=== PATIENT | male | born 1995 | race Caucasian/White ===

== ENCOUNTER 2017-07-05 11:26 | Emergency (ER) | payer SELFPAY ==
[~2017-07-05] VITALS: Ht 190.5 cm; Wt 84.0 kg
[~2017-07-05 11:26] MED LIST: AUGM875T PO; PRED20 PO; ZOFR4TAB PO
[2017-07-05] MEDS ORDERED: IOHEXOL 350 MG/ML 10 ML VIAL (for RAD DIAG) IVCONTRAST ONE (11:27)
[2017-07-05 11:28] VITALS: BP 136/82; PULSE 77; RESP 12; TEMP 98.5; O2SAT 99
--- NOTE | 2017-07-05 11:42 | PD ---
HPI Chief Complaint: Pain: Acute or Chronic Time Seen by Provider: 11:36 Travel History International Travel<30 days: No Contact w/Intl Traveler<30days: No Traveled to known affect area: No History of Present Illness HPI patient states 2 days of left jaw swelling and pain, 03/13, throbbing in nature, denies fever/n/v/d/cp/abdpain/backpain... PFSH Past Medical History Medical other: Yes (TMJ) Social History Alcohol Use: Yes (once a week) Tobacco Use: Yes (1/2ppd) Substance Use: No Allergies-Medications (Allergen,Severity, Reaction): Coded Allergies: No Known Allergies (Unverified Adverse Reaction, Unknown, 07/05/17) Reported Meds & Prescriptions Reported Meds & Active Scripts Active Zofran (Ondansetron HCl) 4 Mg Tab 4 Mg PO Q6HR PRN Review of Systems Except as stated in HPI: all other systems reviewed are Neg HENT: Positive: Other (jaw pain/swelling) Physical Exam Narrative GENERAL: SKIN: Warm and dry. HEAD: Atraumatic. Normocephalic. EYES: Pupils equal and round. No scleral icterus. No injection or drainage. ENT: No nasal bleeding or discharge. Mucous membranes pink and moist. swelling to left parotid area/cheek region that is ttp, it is under estrada and no cellulitic changes are noted NECK: Trachea midline. No JVD. CARDIOVASCULAR: Regular rate and rhythm. RESPIRATORY: No accessory muscle use. Clear to auscultation. Breath sounds equal bilaterally. GASTROINTESTINAL: Abdomen soft, non-tender, nondistended. MUSCULOSKELETAL: Extremities without clubbing, cyanosis, or edema. No obvious deformities. NEUROLOGICAL: Awake and alert. No obvious cranial nerve deficits. Motor grossly within normal limits. Five out of 5 muscle strength in the arms and legs. Normal speech. PSYCHIATRIC: Appropriate mood and affect; insight and judgment normal. Data Data Last Documented VS Vital Signs Date Time Temp Pulse Resp B/P (MAP) Pulse Ox O2 Delivery O2 Flow Rate FiO2 07/05/17 11:35 18 07/05/17 11:28 98.5 77 136/82 (100) 99 Orders Orders Group A Rapid Strep Screen (07/05/17 11:42) Iv Access Insert/Monitor (07/05/17 11:42) Ct Facial Bones W Iv Contrast (07/05/17 ) Strep Culture (Group A) (07/05/17 11:56) Iohexol 350 Inj (Omnipaque 350 Inj) (07/05/17 11:27) MDM Medical Decision Making Medical Screen Exam Complete: Yes Emergency Medical Condition: Yes Medical Record Reviewed: Yes Differential Diagnosis tonsillitis v dental abscess with facial extension v parotid gland or submandibular adenitis Diagnosis Primary Impression: Parotid gland enlargement Referrals: Leo Goldman MD for further evaluation of your enlarged parotid gland, no stone noted on cat scan. Additional Instructions: use lemon drops to see if it helps to improved/decrease swelling as well. make an appointment to follow up with Ear/Nose&Throat specialist Scripts Tramadol (Ultram) 50 Mg Tab 50 MG PO Q4H Y for PAIN, #15 TAB 0 Refills Prov: Rd Vega MD 07/05/17 Methylprednisolone Dosepak (Medrol Dosepak) 4 Mg Dspk 4 MG PO DIRECTED, #1 DSPK 0 Refills Per Pharmacist direction Prov: Rd Vega MD 07/05/17 Disposition: 01 DISCHARGE HOME Condition: Stable Rd Vega MD Jul 05, 2017 11:42
--- NOTE | 2017-07-05 12:43 | RADRPT ---
EXAM DATE/TIME: 07/05/2017 12:20 [facility] COMPARISON: No previous studies available for comparison. INDICATIONS : Left jaw pain with swelling. IV CONTRAST: 80 cc Omnipaque 350 (iohexol) IV RADIATION DOSE: 37.85 CTDIvol (mGy) MEDICAL HISTORY : None SURGICAL HISTORY : None. ENCOUNTER: Initial ACUITY: 3 days PAIN SCALE: 5/10 LOCATION: Left mandible TECHNIQUE: Volumetric scanning of the facial bones was performed. Using automated exposure control and adjustme nt of the mA and/or kV according to patient size, radiation dose was kept as low as reasonably achiev able to obtain optimal diagnostic quality images. DICOM format image data is available electronicall y for review and comparison. FINDINGS: ORBITS: The orbital and infraorbital osseous structures are intact. The retroconal structures have a normal configuration. No radiopaque foreign bodies are seen. NASAL BONE: The nasal bone and maxillary spine are intact ZYGOMATIC ARCHES: Symmetric without evidence of fracture. SINUSES: The maxillary, ethmoid and frontal sinuses are intact. No air-fluid levels seen. NASAL CAVITY: The nasal septum is intact and midline. The lacrimal ducts are intact. SOFT TISSUES: Diffuse left sided facial soft tissue swelling. There is enhancement of the left parotid gland with e ngorgement. No radiopaque stone is seen.. INTRACRANIAL: No intracranial air seen. CRIBIFORM PLATE: Grossly intact. CONCLUSION: 1. Engorgement and enhancement of the left parotid gland. No visible stone. Left sided facial soft ti ssue swelling. No abscess. Goldy Almanzar MD on July 05, 2017 at 12:39 Board Certified Radiologist. This report was verified electronically.
[2017-07-05] MEDS ORDERED: TRAM50 PO (13:21)
[2017-07-05] MEDS ORDERED: MEDR4PAK PO (13:21)
== END 2017-07-05 13:56 | disposition home or self-care (01) ==
LOC: NEPD 11:26
DX: K11.1 Hypertrophy of salivary gland (principal); R68.84 Jaw pain; F17.200 Nicotine dependence, unspecified, uncomplicated; Z87.39 Personal history of other diseases of the musculoskeletal system and connective tissue
CPT/HCPCS: 70487; 87081; 87880; 99285; Q9967